=== PATIENT | female | born 1990 | race Caucasian/White ===

== ENCOUNTER 2024-02-28 15:00 | Emergency (ER) | payer BC, SELFPAY ==
[2024-02-28 15:00] VITALS: BMI 24.9
[2024-02-28 15:11] VITALS: BP 121/75
[2024-02-28 15:39] LABS: % Basophils 0.1 % (0-2); % Immature Granulocytes 0.3 % (0-0.5); % Lymphocytes 10.6 % (20.5-51.1); Absolute Lymphocytes 0.9 10^3/uL (1.2-3.4); Absolute Monocytes 0.4 10^3/uL (0.1-0.6); Absolute Neutrophils 7.3 10^3/uL (1.4-6.5); Hematocrit 38.3 % (37.0-47.0); Hemoglobin 13.2 g/dL (12.0-16.0); Mean Corp Hgb Conc. 34.5 g/dL (33.0-37.0); Mean Corpuscular Hgb 28.8 pg (27.0-31.0); Mean Corpuscular Volume 83.4 fL (81.0-99.0); Mean Platelet Volume 9.4 fL (7.4-10.4); Nucleated Red Blood Cells % 0 %; Platelet Count 187 10^3/uL (130-400); Red Blood Cell Count 4.59 10^6/uL (4.20-5.40); Red Cell Dist. Width 12.5 % (11.5-14.5); White Blood Cell Count 8.7 10^3/uL (4.8-10.8)
[2024-02-28 15:47] LABS: HCG, Serum Qualitative Screen Negative
[2024-02-28 15:52] LABS: ALT (SGPT) 18 U/L (0-35); AST (SGOT) 23 U/L (14-36); Albumin 4.9 g/dl (3.5-5.0); Alkaline Phosphatase 70 U/L (38-126); Blood Urea Nitrogen 15 mg/dl (7-17); Calcium 9.5 mg/dl (8.4-10.2); Carbon Dioxide 23 mmol/L (22-30); Chloride 100 mmol/L (98-107); Glucose 113 mg/dl (70-99); Potassium 3.9 mmol/L (3.5-5.1); Sodium 136 mmol/L (135-145); Total Bilirubin 1.3 mg/dl (0.2-1.3); Total Protein 7.5 g/dl (6.3-8.2); eGFR > 60.00
[2024-02-28 15:53] LABS: COVID-19 Antigen Negative (Negative)
--- NOTE | 2024-02-28 17:15 | ED.GENMED ---
History of Present Illness
General
Chief Complaint: Abdominal Symptoms
Source: patient
Exam Limitations: none
Time Seen by Provider: 02/28/24 16:58
Nursing documentation reviewed up to this point in time: agreed with
History of Present Illness
History of Present Illness:
Patient to ED with complaint of nausea and vomiting since 3AM. States she has been unable to keep anything down. Currently and state milk production has been decreased today. Also not urinating. States son was in ED 2 days ago with
similar symptoms. Brought self to ED for eval. No fever/chills. Reports TAMEZ
Past History
Past History
ED Past Medical History: Asthma and Other (Mitral valve Prolapse); Negative HTN, Hypercholesterolemia or NIDDM
ED Past Surgical History: Gynecological (Ovarian cyst)
Social History
Tobacco: Non-smoker
Alcohol: Occasional
Personal: Single
Living: with family
Employment: Employed
Review of Systems
Review of Systems
Allergies reviewed?: Yes
All Other Systems: ROS reviewed and negative except as documented in HPI and ROS
Constitutional: Reports no symptoms
EENT: Reports no symptoms
Respiratory: Reports no symptoms
Cardiac: Reports no symptoms
ABD/GI: Reports nausea and vomiting
: Reports other (decreased urine output)
Musculoskeletal: Reports back pain (bilateral lower back pain)
Skin: Reports no symptoms
Neurological: Reports weakness
Psychiatric: Reports no symptoms
Phy Exam
General Physical Exam
General Presentation: well appearing and no apparent distress
General age: appears stated age
General Skin: warm and dry
General Habitus: normal
General Mental: alert
Cardiovascular Exam
Cardiovascular Exam: regular rate/rhythm and no edema
Gastrointestinal Exam
Gastrointestinal Exam: normal bowel sounds, non tender, soft, no organomegaly, non distended and no cva tenderness
Musculoskeletal Exam
Musculoskeletal Exam: full ROM and neuro vasc intact
Skin Exam
Skin Exam: normal color, warm/dry and no rash
Psychiatric Exam
Psychiatric Exam: normal mood/affect
Course
Orders/Labs/Results
Orders:
Orders
02/28/24 15:14
Test Result ONCE
02/28/24 15:21
CBC/With Diff [Complete Blood Count/With Diff] Urgent
COVID-19 Antigen Urgent
Source: Nasal Swab
Comprehensive Metabolic Panel Urgent
HCG, Serum Qualitative Screen Urgent
Influenza A+B Rapid Molecular Urgent
DEREK Source: Nasal Swab
Specimen Description:
02/28/24 17:15
0.9% Sodium Chloride 1000 ml [Nss] 1,000 ml IV BOLUS
Ketorolac [Toradol] 30 mg IV NOW STA
Ondansetron Injectable [Zofran] 4 mg IV NOW STA
02/28/24 18:16
Urinalysis Reflex To Culture Urgent
Date Specimen was Collected: 02/28/24
Time Specimen was Collected: 18:13
02/28/24 18:44
Acetaminophen [Tylenol] 1,000 mg PO NOW STA
Abnormal Lab Results
02/28/24 02/28/24
15:21 18:16
Absolute Neuts (auto) 7.3 H 10^3/uL
(1.4-6.5)
Absolute Lymphs (auto) 0.9 L 10^3/uL
(1.2-3.4)
Neutrophils % 84.0 H %
(42.2-75.2)
Lymphocytes % 10.6 L %
(20.5-51.1)
Creatinine 0.5 L mg/dL
(0.6-1.0)
Glucose 113 H mg/dl
(70-99)
Urine Ketones 2+ A
(Negative)
02/28/24 15:21
02/28/24 15:21
Vital Signs
Initial and Last Documented VS:
Initial Vital Signs
Temp Pulse Resp BP Pulse Ox
98.7 F 87 16 121/75 97
02/28/24 15:11 02/28/24 15:11 02/28/24 15:11 02/28/24 15:11 02/28/24 15:11
Last Documented Vital Signs
Temp Pulse Resp BP Pulse Ox
98.5 F 75 16 110/71 98
02/28/24 17:27 02/28/24 17:27 02/28/24 17:27 02/28/24 17:27 02/28/24 17:27
*Critical Care Note
Total Time (30-74mins, 75-104mins- exclusive of procedures): Not Applicable
Update Note
Update Note:
Improved with IVF and zofran. Tolerating ice chips. Will discharge home, follow up with PCP.
ED Attending Note
-
Portions of this chart may have been created with voice recognition software.� Occasional wrong word or��sound alike� substitutions may have occurred due to the inherent limitations of voice recognition software.
Discharge Plan
Departure
Patient Disposition: Home (Routine Discharge)
Date of Disposition: 02/28/24
Time of Disposition: 19:24
Patient with high blood pressure during this ER visit?: No
Condition: Good
Covid-19: Not Applicable
Discharge Problem:
Nausea & vomiting
Instructions: Nausea and Vomiting, Adult (DC)
Prescriptions:
New
ondansetron 4 mg tablet,disintegrating
4 mg PO Q8H PRN (Reason: nausea and vomiting) 4 Days Qty: 12 0RF
No Action
cyclobenzaprine 10 MG tablet
10 mg PO HS Qty: 5 0RF
prednisone 20 MG tablet
40 mg PO DAILY Qty: 6 0RF
Referrals:
Caroline Carty PA [Family Provider] - Call in 1-3 days for appt
Activity Restrictions/Additional Instructions:
Return to the emergency department immediately for any changes in/worsening of your symptoms.
Interventions
Interventions:
*Risk Screen - Suicide Last Done: 02/28/24 15:11
*General Assessment Last Done: 02/28/24 17:40
*Neglect/Abuse Screening Last Done: 02/28/24 15:11
*ED COVID-19 Vaccine History Last Done: 02/28/24 17:40
HS-Emdfxo-Fekvbkfddy Assessment Last Done: 02/28/24 17:40
Discharge Date and Time
Print Language: ARMENIAN
[2024-02-28 17:27] VITALS: BP 110/71
[2024-02-28] MEDS: NSS 1000 IV (17:34)
[2024-02-28] MEDS: ZOFRAN 4 MG IV (17:50)
[2024-02-28 18:23] LABS: Urine Albumin Negative (Neg - Trace); Urine Bilirubin Negative (Negative); Urine Character Clear (Clear); Urine Color Yellow; Urine Glucose Negative (Negative); Urine Ketone 2+ (Negative); Urine Leukocyte Negative (Negative); Urine Nitrite Negative (Negative); Urine Occult Blood Negative (Negative); Urine Urobilinogen Negative (Neg - 1+); Urine pH 6.5 (5.0-9.0)
[2024-02-28] MEDS: TYLENOL 1000 MG PO (18:47)
[2024-02-28 19:33] VITALS: BP 118/74
== END 2024-02-28 19:35 | disposition home or self-care (01) ==
LOC: EMR 15:00
PROVIDERS: Nurse Practitioner; EMERGENCY PHYSICIAN Student in an Organized Health Care Education/Training Program; FAMILY PHYSICIAN Physician Assistant Medical
DX: R11.2 Nausea with vomiting, unspecified (principal); J45.909 Unspecified asthma, uncomplicated; Z39.1 Encounter for care and examination of lactating mother
CPT/HCPCS: 96374; 96361; 99284; 80053; 81003; 84703; 85025; 87502; 87811